=== PATIENT | female | born 1955 ===

== ENCOUNTER 2022-10-30 06:13 | Day surgery (SDC) | payer OTHER | END 2022-10-30 12:55 | disposition home or self-care (01) | LOC: AMB-ENDOS 06:13 | PROVIDERS: ATTEND Colon & Rectal Surgery | DX: D12.2 Benign neoplasm of ascending colon (principal); D12.4 Benign neoplasm of descending colon; D12.5 Benign neoplasm of sigmoid colon; D12.3 Benign neoplasm of transverse colon; K57.30 Diverticulosis of large intestine without perforation or abscess without bleeding; K64.8 Other hemorrhoids; Z20.822 Contact with and (suspected) exposure to COVID-19 ==

== ENCOUNTER 2022-11-19 09:00 | Inpatient (IN) | payer OTHER ==
[~2022-11-19] VITALS: Ht 152.4 cm; Wt 63.5 kg
[2022-11-25] MEDS ORDERED: VITAMIN D350 MCG (08:43)
[2022-11-25] MEDS ORDERED: REFRESH TEARS15 ML (08:43)
[2022-11-25] MEDS ORDERED: VITAMIN E1000 UNI1 (08:43)
[2022-11-25] MEDS ORDERED: COZAAR100 MG PO (08:44)
== END 2022-12-03 16:21 | disposition home or self-care (01) | DRG 331 ==
LOC: O/R 11-25 05:40 → SURG 11-25 07:00 → SURH 11-25 15:20 → O/R 11-28 12:53 → SURH 11-28 12:54 → MEDJ 11-30 21:43
PROVIDERS: ADMIT Colon & Rectal Surgery; ATTEND Colon & Rectal Surgery
PROC: 0DBM4ZZ Excision of Descending Colon, Percutaneous Endoscopic Approach (ICD-10-PCS; 2022-11-25)
PROC: 07BC4ZX Excision of Pelvis Lymphatic, Percutaneous Endoscopic Approach, Diagnostic (ICD-10-PCS; 2022-11-25)
PROC: 0DBU4ZZ Excision of Omentum, Percutaneous Endoscopic Approach (ICD-10-PCS; 2022-11-25)
PROC: 0DTF4ZZ Resection of Right Large Intestine, Percutaneous Endoscopic Approach (ICD-10-PCS; principal; 2022-11-25 07:00)
PROC: BT4JZZZ Ultrasonography of Kidneys and Bladder (ICD-10-PCS; 2022-11-29)
PROC: BW21ZZZ Computerized Tomography (CT Scan) of Abdomen and Pelvis (ICD-10-PCS; 2022-11-30)
DX: C18.2 Malignant neoplasm of ascending colon (principal)

== ENCOUNTER 2025-02-09 07:31 | Day surgery (SDC) | payer OTHER ==
[~2025-02-09 07:31] MED LIST: COZAAR100 MG PO; REFRESH TEARS15 ML; VITAMIN D350 MCG; VITAMIN E1000 UNI1
[2025-02-09] MEDS ORDERED: DIPHENHYDRAMINE HCL 50 MG/ML VIAL 1ML IV ONE (09:30)
[2025-02-09] MEDS ORDERED: ONDANSETRON HCL 2 MG/ML VIAL IV ONE (09:30)
[2025-02-09] MEDS ORDERED: fentaNYL CITRATE 50 MCG/ML AMPUL IV PUSH ONE (09:30)
[2025-02-09] MEDS ORDERED: MIDAZOLAM HCL 2 MG/2 ML VIAL IV ONE (09:30)
== END 2025-02-09 11:30 | disposition home or self-care (01) ==
LOC: CIR.AMB 07:31
PROVIDERS: ATTEND Colon & Rectal Surgery
DX: K63.5 Polyp of colon (principal); C20 Malignant neoplasm of rectum; Z12.11 Encounter for screening for malignant neoplasm of colon